=== PATIENT | female | born 1990 | race Caucasian/White ===

== ENCOUNTER 2016-05-24 17:30 | Emergency (ER) | payer OTHER ==
[~2016-05-24] VITALS: Wt 53.1 kg
--- NOTE | 2016-05-24 17:48 | ERD ---
ER Documentation Chief Complaint Date/Time DATE: 05/24/16 TIME: 17:40 Chief Complaint pt needs med refill on viral infection for skin . lost rx HPI 26-year-old patient presents to the emergency department with history of IV drug use, skin rash and possible scabies infection which began 3 weeks ago. Patient was seen at [facility] 3 days ago and provided with prescription for fungal and bacterial infection control. Patient states that she was also diagnosed with a systemic viral infection. Patient is up-to-date on all vaccinations. She denies any itching but states that she feels mild discomfort from the rash. She also notes intermittent achiness. She denies any serious fever, chills or major swelling of skin. Patient states she lost the prescription that was provided by [facility] and is requesting refill. ROS All systems reviewed and are negative except as per history of present illness. Medications Home Meds Active Scripts Mupirocin* (Bactroban*) 2% -22 Gram Oint...g., 1 APPLIC TOP BID for 7 Days, EA Prov:SHARON LOFTON PA-C 05/24/16 Efinaconazole (Jublia) 4 Ml Melissa.w.appl, 4 ML TP BID for 10 Days Prov:SHAORN LOFTON PA-C 05/24/16 Cephalexin* (Keflex*) 500 Mg Capsule, 500 MG PO QID for 7 Days, CAP Prov:SHARON LOFTON PA-C 05/24/16 Physical Exam Vitals Vital Signs Date Time Temp Pulse Resp B/P Pulse Ox O2 Delivery O2 Flow Rate FiO2 05/24/16 17:32 98.7 122 21 130/81 99 Physical Exam Const: Well-developed well-nourished, in no acute distress Head: Atraumatic Eyes: Normal Conjunctiva ENT: Normal External Ears, Nose and Mouth. Neck: Full range of motion..~ No meningismus. Resp: Clear to auscultation bilaterally Cardio: Regular rate and rhythm, no murmurs Abd: Soft, non tender, non distended. Normal bowel sounds Skin: Isolated pustule lesion located on right medial aspect of foot. Mild onychomycosis surrounding the nailbed of fingers bilaterally. Dermatitis noted at the corners of mouth and nasolabial fold. No petechiae Back: No midline or flank tenderness Ext: No cyanosis, or edema Neur: Awake and alert Psych: Normal Mood and Affect Procedures/MDM Patient seen and treated and flu track today. 26-year-old female with a history of IV drug use and rash presents to the emergency department for refill of antibiotic and antifungal therapy as previously prescribed by [facility]. Patient's vital signs reviewed. Patient afebrile, normotensive, non-hypoxic. Patient well-appearing upon exam. Patient denies any fever or pain. Patient history and physical exam consistent with staph dermatitis and onychomycosis of nail beds on upper extremities. No evidence of deep abscess formation severe systemic infection or sepsis. Patient does not exhibit any clinical findings for maculopapular or pruritic rash. At this time I have low suspicion for scabies. Patient will be prescribed with Keflex and at the econazole. Based on patient's history of present illness and physical examination the decision was made to discharge. There is no evidence of life threatening injuries or illnesses at this time. On re-examination, patient resting in no distress, stable vital signs, reports feeling better and safe for discharge with outpatient follow up with PMD in 1-2 days. Patient given return precautions. Departure Diagnosis: Primary Impression: Dermatitis Additional Impressions: Fungal nail infection IV drug user Skin pustule Staph aureus infection SHARON LOFTON PA-C May 24, 2016 17:48
[2016-05-24] MEDS ORDERED: EFIN4SOL TP (17:50)
[2016-05-24] MEDS ORDERED: CEPH-443 PO (17:50)
[2016-05-24] MEDS ORDERED: MUPI22OI2 TOP (17:51)
== END 2016-05-24 18:02 | disposition home or self-care (01) ==
LOC: FTE 17:30 → E/R 18:02
DX: L30.9 Dermatitis, unspecified (principal); B35.1 Tinea unguium; L08.9 Local infection of the skin and subcutaneous tissue, unspecified; B95.61 Methicillin susceptible Staphylococcus aureus infection as the cause of diseases classified elsewhere
CPT/HCPCS: 99284

== ENCOUNTER 2016-07-22 07:25 | Emergency (ER) | payer OTHER ==
[~2016-07-22] VITALS: Wt 47.7 kg
[~2016-07-22 07:25] MED LIST: CEPH-443 PO; EFIN4SOL TP; MUPI22OI2 TOP
[2016-07-22 07:33] VITALS: Wt 47.7 kg
[2016-07-22] MEDS ORDERED: KETOROLAC 30 MG INJ IM STA (08:13)
[2016-07-22] MEDS ORDERED: KETOROLAC 30 MG INJ IV STA (08:18)
[2016-07-22] MEDS ORDERED: AZITHROMYCIN 250 MG TAB PO ONE (08:30)
[2016-07-22] MEDS ORDERED: MECLIZINE 12.5 MG TAB PO ONE (08:30)
[2016-07-22] MEDS ORDERED: CEFTRIAXONE 250 MG INJ IM ONE (08:30)
[2016-07-22] MEDS ORDERED: KETOROLAC 60 MG INJ IM STA (08:46)
[2016-07-22 08:56] LABS: ADD SCAN DIFF NO
[2016-07-22 09:02] LABS: BASOPHILS % 0.5 % (0.0-2.0); EOSINOPHILS # 0.2 10^3/ul (0.0-0.5); EOSINOPHILS % 2.5 % (0.0-7.0); HEMATOCRIT 40.4 % (37.0-47.0); HEMOGLOBIN 12.8 g/dl (12.0-16.0); LYMPHOCYTES # 1.4 10^3/ul (0.8-2.9); LYMPHOCYTES % 16.9 % (15.0-51.0); MEAN CORPUSCULAR HEMOGLOBIN 30.5 pg (29.0-33.0); MEAN CORPUSCULAR HGB CONC 31.7 g/dl (32.0-37.0); MEAN CORPUSCULAR VOLUME 96.4 fl (82.0-101.0); MEAN PLATELET VOLUME 8.9 fl (7.4-10.4); MONOCYTE # 0.9 10^3/ul (0.3-0.9); MONOCYTES % 10.6 % (0.0-11.0); NEUTROPHIL # 5.7 10^3/ul (1.6-7.5); NEUTROPHILS % 69.1 % (39.0-77.0); PLATELET COUNT 342 10^3/UL (140-415); RED BLOOD COUNT 4.19 10^6/ul (4.20-5.40); RED CELL DISTRIBUTION WIDTH 13.2 % (11.5-14.5); WHITE BLOOD COUNT 8.3 10^3/ul (4.8-10.8)
[2016-07-22 09:03] LABS: ADD UMIC NO; URINE BILIRUBIN (Dip) NEGATIVE (NEGATIVE); URINE BLOOD (Dip) NEGATIVE (NEGATIVE); URINE COLOR LT. YELLOW (YELLOW); URINE GLUCOSE (Dip) NEGATIVE (NEGATIVE); URINE KETONES (Dip) NEGATIVE (NEGATIVE); URINE LEUKOCYTE ESTERASE (Dip) NEGATIVE (NEGATIVE); URINE NITRITE (Dip) NEGATIVE (NEGATIVE); URINE TOTAL PROTEIN (Dip) NEGATIVE (NEGATIVE); URINE UROBILINOGEN (Dip) 0.2 E.U./dL (0.1-1.0)
[2016-07-22 09:13] LABS: ALBUMIN 4.2 g/dl (3.3-4.9); ALBUMIN/GLOBULIN RATIO 1.27; BILIRUBIN,INDIRECT 0.1 mg/dl (0-1.1); BILIRUBIN,TOTAL 0.1 mg/dl (0.2-1.3); CALCIUM 8.7 mg/dl (8.4-10.2); CREATININE 0.66 mg/dl (0.44-1.00); TOTAL PROTEIN 7.5 g/dl (6.1-8.1)
--- NOTE | 2016-07-22 10:19 | ERD ---
ER Documentation Chief Complaint Date/Time DATE: 07/22/16 TIME: 10:03 Chief Complaint nausea, diarrhea, bodyaches, cough, fever, dizzy HPI 26-year-old female complaining of chills and body aches 2 hours. Described the body ache is muscle pain. Patient reports similar symptoms along with fatigue on and off for the last 2 months. Patient also complaining of feeling dizzy. Described dizziness as spinning-like sensation, worse with head movement. She reports feeling nauseous, but no vomiting. Denies fever. Denies diarrhea. Denies recent head trauma. Denies blurry vision. Reports sharp abdominal pain that comes and goes, lasting about 1 minutes each. Also reports feeling "gassy". Patient admits to IV drug use daily with crystal meth. Last use was last night. She smokes a use EtOH on a regular basis. LMP was about 1 week ago. Patient reports multiple sexual partners in the last year , but "always use condoms". Reports dysuria. Denies flank pain. Patient states that she is currently homeless, she had a permanent placement, but is unable to go there because she is feeling sick. ROS All systems reviewed and are negative except as per history of present illness. Medications Home Meds Active Scripts Meclizine Hcl* (Antivert*) 12.5 Mg Tab, 12.5 MG PO Q6H Y for DIZZINESS, #20 TAB Prov:HALEIGH CROWELL POLICE LIAISON OFFICER 07/22/16 Acetaminophen* (Tylophen*) 500 Mg Capsule, 1 CAP PO Q6H Y for PAIN AND OR ELEVATED TEMP, #20 CAP Prov:HALEIGH CROWELL [employer]IAISON OFFICER 07/22/16 Mupirocin* (Bactroban*) 2% -22 Gram Oint...g., 1 APPLIC TOP BID for 7 Days, EA Prov:SHARON LOFTON PA-C 05/24/16 Efinaconazole (Jublia) 4 Ml Melissa.w.appl, 4 ML TP BID for 10 Days Prov:SHARON LOFTON PA-C 05/24/16 Cephalexin* (Keflex*) 500 Mg Capsule, 500 MG PO QID for 7 Days, CAP Prov:SHARON LOFTON PA-C 05/24/16 PMhx/Soc History of Surgery: Yes (biopsy of cervix HPV+) Anesthesia Reaction: No Hx Neurological Disorder: No Hx Respiratory Disorders: No Hx Psychiatric Problems: Yes (bipolar depression anxiety) Hx Alcohol Use: Yes (daily) Hx Substance Use: Yes (Shooting crystal meth daily, pot) Hx Tobacco Use: Yes Smoking Status: Current every day smoker Physical Exam Vitals Vital Signs Date Time Temp Pulse Resp B/P Pulse Ox O2 Delivery O2 Flow Rate FiO2 07/22/16 07:33 98.4 118 20 128/79 98 Physical Exam General impression: Well-developed, well-nourished. Alert, oriented, in no acute distress Head: Normocephalic, atraumatic. Eyes: PERRL, EOM normal. Sclerae are normal. Conjunctiva not injected. ENT: External canals patent. TM'sclear. Nasal mucosa, oral mucosa and oropharynx are normal. Neck: Supple, nontender. No lymphadenopathy. No nuchal rigidity. Respiration: Normal respiratory effort. Lungs clear to auscultate bilaterally. No wheezes, rales or rhonchi. Cardiovascular: Regular rate and rhythm. No murmurs or extra heart sounds. Abdomen: Abdomen normal to inspection. Nontender. No masses or organomegaly. Bowel sounds normal. Back: Normal to inspection. No midline spine tenderness. No CVA tenderness. Extremities: Bilateral upper extremity shows sclerosed veins, nontender. Normal range of motion and strength in all extremities. Neuro: Mental status normal, speech normal. ADMINISTRATIVE OFFICE ASSISTANT grossly intact. Abdiel- Hallpike positive bilaterally. Skin: Normal turgor. No rash or lesions. Psych: Mood labile. Result Diagram: 07/22/16 0845 07/22/16 0845 Results 24 hrs Laboratory Tests Test 07/22/16 08:30 07/22/16 08:45 Urine Color LT. YELLOW Urine Clarity CLEAR Urine pH 6.5 Urine Specific [place] 1.025 Urine Ketones NEGATIVE Urine Nitrite NEGATIVE Urine Bilirubin NEGATIVE Urine Urobilinogen 0.2 E.U./dL Urine Leukocyte Esterase NEGATIVE Urine Hemoglobin NEGATIVE Urine Glucose NEGATIVE% Urine Total Protein NEGATIVE White Blood Count 8.310^3/ul Red Blood Count 4.1910^6/ul Hemoglobin 12.8g/dl Hematocrit 40.4% Mean Corpuscular Volume 96.4fl Mean Corpuscular Hemoglobin 30.5pg Mean Corpuscular Hemoglobin Concent 31.7g/dl Red Cell Distribution Width 13.2% Platelet Count 10120^3/UL Mean Platelet Volume 8.9fl Neutrophils % 69.1% Lymphocytes % 16.9% Monocytes % 10.6% Eosinophils % 2.5% Basophils % 0.5% Nucleated Red Blood Cells % 0.0/100WBC Neutrophils # 5.710^3/ul Lymphocytes # 1.410^3/ul Monocytes # 0.910^3/ul Eosinophils # 0.210^3/ul Basophils # 0.010^3/ul Nucleated Red Blood Cells # 0.010^3/ul Sodium Level 137mmol/L Potassium Level 4.0mmol/L Chloride Level 105mmol/L Carbon Dioxide Level 26mmol/L Anion Gap 10 Blood Urea Nitrogen 18mg/dl Creatinine 0.66mg/dl Glucose Level 86mg/dl Calcium Level 8.7mg/dl Total Bilirubin 0.1mg/dl Direct Bilirubin 0.00mg/dl Indirect Bilirubin 0.1mg/dl Aspartate Amino Transf (AST/SGOT) 27IU/L Alanine Aminotransferase (ALT/SGPT) 32IU/L Alkaline Phosphatase 76IU/L Total Protein 7.5g/dl Albumin 4.2g/dl Globulin 3.30g/dl Albumin/Globulin Ratio 1.27 Monoscreen Positive Current Medications Medications (Trade) Dose Ordered Sig/Gregg Route PRN Reason Start Time Stop Time Status Last Admin Dose Admin Meclizine HCl (Antivert) 12.5 mg ONCE ONCE PO 07/22/16 08:30 07/22/16 08:31 DC 07/22/16 08:44 Ketorolac Tromethamine (Toradol) 30 mg ONCE STAT IM 07/22/16 08:13 07/22/16 08:19 DC Azithromycin (Zithromax) 1,000 mg ONCE ONCE PO 07/22/16 08:30 07/22/16 08:31 DC 07/22/16 08:44 Ceftriaxone Sodium (Rocephin) 250 mg ONCE ONCE IM 07/22/16 08:30 07/22/16 08:31 DC 07/22/16 08:44 Ketorolac Tromethamine (Toradol) 30 mg ONCE STAT IV 07/22/16 08:18 07/22/16 08:46 DC Ketorolac Tromethamine (Toradol) 60 mg ONCE STAT IM 07/22/16 08:46 07/22/16 08:47 DC 07/22/16 08:50 Procedures/MDM 26-year-old female presented to ED with multiple complaints. Given patient's IV drug use history, I am concerned for possible infection secondary to IV drug use, as well as UTI or sexually transmitted infections.. CBC, CMP, and UA were obtained. All are unremarkable. No sign of UTI or other infection. I suspect her dysuria may be due to sexually transmitted infection. Azithromycin 1 g p.o. and Rocephin 250 mg IV is given to the patient in ED. Monospot is positive. Low suspicion for pneumonia or bronchitis. Patient is advised to increase fluid intake and rest. Patient complains of vertigo. Meclizine given to the patient in the ED. Her vertigo is likely a peripheral causes. She has vertigo with movement which suggests benign positional vertigo. Low suspicion for Mnire's disease, intracranial mass or hemorrhage, or stroke. Patient still complaining of nausea after meclizine. Zofran given to the patient. Patient appears well, stable for discharge and outpatient management. Medical decision making shared with patient and family. Education provided to patient and family. Patient and family expressed understanding of the plan. Medications on discharge: Meclizine, Zofran, Tylenol. Follow-up: Primary care provider in 2-3 days or return to ED if worse. HALEIGH CROWELL NP Jul 22, 2016 10:14
[2016-07-22] MEDS ORDERED: ACET500C5 PO (10:45)
[2016-07-22] MEDS ORDERED: MECL12.574 PO (10:46)
[2016-07-22] MEDS ORDERED: ONDANSETRON (ODT) 4 MG TAB ODT STA (11:03)
[2016-07-22] MEDS ORDERED: ONDA4TAB14 PO (11:04)
[2016-07-22 11:11] VITALS: BP 131/74; PULSE 112; RESP 18; TEMP 98.5
== END 2016-07-22 11:15 | disposition home or self-care (01) ==
LOC: FTE 07:25
DX: B27.90 Infectious mononucleosis, unspecified without complication (principal); H81.10 Benign paroxysmal vertigo, unspecified ear; F17.210 Nicotine dependence, cigarettes, uncomplicated
CPT/HCPCS: 80053; 81003; 85025; 86308; 87040; 87591; J0696; J1885; Z7610; 96372